=== PATIENT | female | born 1990 | race Caucasian/White ===

== ENCOUNTER 2016-09-13 19:32 | Inpatient (IN) | payer MEDICAID, OTHER ==
[~2016-09-13] VITALS: Ht 175.3 cm; Wt 90.3 kg
[2016-09-13] MEDS ORDERED: LACTATED RINGER'S 1000 ML INJ 1,000 ML IV PRN (20:49)
[2016-09-13] MEDS ORDERED: OXYTOCIN 30 UNITS-500ML PREMIX 500 ML IV ONE (21:00)
[2016-09-13] MEDS ORDERED: DINOPROSTONE 10 MG VAG INSERT VAGINAL ONE (21:00)
[2016-09-13] MEDS ORDERED: MINERAL OIL 10 ML VIAL TOPICAL PRN (21:00)
[2016-09-13] MEDS ORDERED: LIDOCAINE HCL 1% 50 ML VIAL I-DERMAL PRN (21:00)
[2016-09-13] MEDS ORDERED: SODIUM CHLORIDE 0.9% FLUSH 10 ML FLUSH IV FLUSH PRN (21:00)
[2016-09-13] MEDS ORDERED: CITRIC ACID-SODIUM CITRATE LIQ 30 ML UDC PO SCH (21:00)
[2016-09-13] MEDS ORDERED: LIDOCAINE HCL 1% 50 ML VIAL INFIL PRN (21:00)
[2016-09-13] MEDS ORDERED: SODIUM CHLORID 0.9% 500 ML INJ 500 ML IV PRN (21:00)
[2016-09-13] MEDS ORDERED: SODIUM CHLOR 0.9% 1000 ML INJ 1,000 ML IV PRN (21:09)
[2016-09-13 21:18] LABS: BASOPHIL % 0.1 % (0.0-2.0); EOSINOPHIL # 0.1 TH/MM3 (0-0.4); EOSINOPHIL % 0.8 % (0.0-4.0); HEMATOCRIT 36.6 % (35.0-46.0); HEMO FLAGS DIFF FINAL; LYMPH % 14.1 % (9.0-44.0); MEAN CELL VOLUME 83.2 FL (80.0-100.0); MEAN CORPUSCULAR HEMOGLOBIN 28.3 PG (27.0-34.0); MONO % 6.1 % (0.0-8.0); NEUT % 78.9 % (16.0-70.0); PLATELET COUNT 226 TH/MM3 (150-450); RED CELL DISTRIBUTION WIDTH 14.5 % (11.6-17.2)
[2016-09-13 21:20] LABS: BACTERIA, URINE RARE /hpf; BLOOD, URINE NEG (NEG); COMMENT (UR) CULT NOT INDICATED; CULTURE IF INDICATED CULT NOT INDICATED; GLUCOSE,URINE NEG (NEG); KETONE, URINE NEG (NEG); MUCUS URINE FEW /lpf (OCC); NITRITE,URINE NEG (NEG); PH, URINE 6.5 (5.0-8.5); SQUAMOUS EPITHELIAL CELL URINE 3 /hpf (0-5); URINE COLOR YELLOW (YELLW/STRAW)
[2016-09-13] MEDS: LACTATED RINGER'S 1000 ML INJ 1,000 ML IV SCH (21:48)
[2016-09-13] MEDS: SODIUM CHLORIDE 0.9% FLUSH 10 ML FLUSH IV FLUSH SCH (21:48)
[2016-09-13 23:48] VITALS: BP 120/71; PULSE 86
[2016-09-13 23:49] VITALS: RESP 18; TEMP 97.7
[2016-09-14] VITALS (87 sets, daily range): BP systolic 95–139; BP diastolic 45–110; PULSE 77–170; RESP 12–20; TEMP 97.7–98.5
[2016-09-14] MEDS ORDERED: PREN29TA PO (07:44)
--- NOTE | 2016-09-14 08:37 | HHI.HP ---
HPI Chief Complaint iol Date Seen: September 14, 2016 Travel History International Travel<30 Days: No Contact w/Intl Traveler<30Days: No Known Affected Area: No History of Present Illness HPI Pt is a G1 with iup at 40w1d admitted overnight for elective iol. She has good fm, irreg ctx, no lof or vb. PNC uncomplicated. h/o asthma, well controlled in . Wt gain 38 lb. Varicella non-immune. Para: 0 : 1 History Past Medical History Narrative Medical mild intermittent asthma varicella non-immune Obstetric History Obstetric History G1 Past Surgical History Surgical History: No Previous Surgery Family History Family History: Negative Social History Alcohol Use: No Tobacco Use: No Substance Abuse: No Allergies-Medications (Allergen,Severity, Reaction): Coded Allergies: No Known Allergies (Unverified , 09/13/16) Home Meds Reported Medications Vit-Iron Carbonyl ( Plus Iron 29-1 mg)1 Tab Tab1 Tab PO DAILY #30 TAB Ref 0 09/14/16 Review of Systems General / Constitutional: No: Fever, Weight Gain, Chills, Other Eyes: No: Diploplia, Blurred Vision, Visual changes, Pain, Photophobia HENT: No: Headaches, Vertigo, Lightheadedness Cardiovascular: No: Irregular Rhythm, Chest Pain or Discomfort, Palpitations, Tachycardia, Syncope, Varicosities, Edema, Cyanosis Respiratory: No: Cough, Short of Breath, Other Gastrointestinal: No: Nausea, Vomiting, Diarrhea Genitourinary: No: Decreased Urinary Output, Oliguria Musculoskeletal: No: Limited ROM, Weakness, Cramping, Edema, Pain Skin: No Rash, No Itching, No Dryness, No Lumps, No Change in Pigmentation, No Change in Nails, No Alopecia, No Lesions Neurologic: No: Weakness, Dizziness, Syncope, Focal Abnormalities, Coordination Problem, Headache, Slurred Speech, Seizures Psychiatric: No: Depression, Suicidal Ideations, Homicidal Ideation Endocrine: No: Heat Intolerance, Cold Intolerance, Polydipsia, Polyuria, Other Physical Exam Vital Signs Date Time Temp Pulse Resp B/P Pulse Ox O2 Delivery O2 Flow Rate FiO2 09/14/16 07:15 18 09/14/16 07:15 98 108/75 09/14/16 07:15 98.2 09/14/16 04:53 104 116/75 09/14/16 04:52 98.0 18 09/14/16 03:37 98.1 09/14/16 03:34 91 18 125/77 09/13/16 23:49 97.7 18 09/13/16 23:48 86 120/71 Narrative GENERAL: Well-nourished, well-developed patient. SKIN: Warm and dry. HEAD: Normocephalic and atraumatic. EYES: No scleral icterus. No injection or drainage. ENT: No nasal drainage noted. Mucous membranes pink. Airway patent. NECK: Supple, trachea midline. No JVD. CARDIOVASCULAR: Regular rate and rhythm without murmurs, gallops, or rubs. RESPIRATORY: Breath sounds equal bilaterally. No accessory muscle use. ABDOMEN/GI: Abdomen soft, non-tender, bowel sounds present, no rebound, no guarding Gravid to 40 weeks size GENITOURINARY: External Genitalia: intact and normal in appearance BUS glands: [-] Cervix: 1/75/-2, post Presentation: ceph Membranes: [intact Uterine Contractionsirreg FHT's: Category: I EXTREMITIES: No cyanosis or edema. BACK: Nontender without obvious deformity. No CVA tenderness. NEUROLOGICAL: Awake and alert. Motor and sensory grossly within normal limits. Five out of 5 muscle strength in all muscle groups. Normal speech. Data Data Vital Signs Reviewed: Yes Orders Admit To Inpatient (09/13/16 ) Code Status (09/13/16 20:49) Vital Signs (Adult) .Per protocol (09/13/16 20:49) Activity Oob Ad Latoya (09/13/16 20:49) Amnioinfusion (09/13/16 20:49) Urinary Catheter Management .ONCE (09/13/16 20:49) Lactated Ringer's 1000 Ml Inj (Lr 1000 M (09/13/16 21:00) Lactated Ringer's 1000 Ml Inj (Lr 1000 M (09/13/16 20:49) Sodium Chlorid 0.9% 500 Ml Inj (Ns 500 M (09/13/16 21:00) Sodium Chlor 0.9% 1000 Ml Inj (Ns 1000 M (09/13/16 21:09) Lidocaine 1% Inj (50 Ml) (Xylocaine 1% I (09/13/16 21:00) Citric Acid-Sodium Citrate Liq (Bicitra (09/13/16 21:00) Fentanyl Inj (Fentanyl Inj) (09/13/16 21:00) Fentanyl Inj (Fentanyl Inj) (09/13/16 21:00) Complete Blood Count With Diff (09/13/16 20:49) Hold Clot (09/13/16 20:49) Abo/Rh Blood Type (09/13/16 20:49) Urinalysis - C+S If Indicated (09/13/16 20:49) Resp Oxygen Non Rebreathe Mask (09/13/16 ) ^ Epidural / Intrathecal Infus (09/13/16 20:49) Oxytocin 30 Units-500ml Premix (Pitocin (09/13/16 21:00) Lidocaine 1% Inj (50 Ml) (Xylocaine 1% I (09/13/16 21:00) Light Mineral Oil (Muri-Lube Oil) (09/13/16 21:00) Admit To Inpatient (09/13/16 ) Diet Regular Basic (09/14/16 Breakfast) ^ Vaginal Insert (09/13/16 20:49) Heart (09/13/16 20:49) Sodium Chloride 0.9% Flush (Ns Flush) (09/13/16 21:00) Sodium Chloride 0.9% Flush (Ns Flush) (09/13/16 21:00) Dinoprostone Vag Insert (Cervidil Vag In (09/13/16 21:00) Inpatient Certification (09/13/16 ) Specimen To Be Collected PRN (09/13/16 20:49) Labs Laboratory Tests Test 09/13/16 19:55 White Blood Count 14.0 Red Blood Count 4.40 Hemoglobin 12.5 Hematocrit 36.6 Mean Corpuscular Volume 83.2 Mean Corpuscular Hemoglobin 28.3 Mean Corpuscular Hemoglobin 34.0 Concent Red Cell Distribution Width 14.5 Platelet Count 226 Mean Platelet Volume 7.6 Neutrophils (%) (Auto) 78.9 Lymphocytes (%) (Auto) 14.1 Monocytes (%) (Auto) 6.1 Eosinophils (%) (Auto) 0.8 Basophils (%) (Auto) 0.1 Neutrophils # (Auto) 11.0 Lymphocytes # (Auto) 2.0 Monocytes # (Auto) 0.9 Eosinophils # (Auto) 0.1 Basophils # (Auto) 0.0 CBC Comment DIFF FINAL Differential Comment Urine Color YELLOW Urine Turbidity CLEAR Urine pH 6.5 Urine Specific [place] 1.018 Urine Protein NEG Urine Glucose (UA) NEG Urine Ketones NEG Urine Occult Blood NEG Urine Nitrite NEG Urine Bilirubin NEG Urine Urobilinogen LESS THAN 2.0 Urine Leukocyte Esterase NEG Urine RBC LESS THAN 1 Urine WBC 2 Urine Squamous Epithelial 3 Cells Urine Bacteria RARE Urine Mucus FEW Microscopic Urinalysis Comment CULT NOT INDICATED Blood Type O POSITIVE Band and Hold HOLD CLOT IN BB Assessment/Plan Problem List: (1) Labor and delivery indication for care or intervention Discharge Planning 26 yo G1 with iup at 40w1d here for iol s/p cervidil, will start pitocin, AROM when possible gbs + start pcn varicella NI- vaccine pp Fetus - cephalic, Cat I Michelle Valenzuela MD September 14, 2016 08:36
[2016-09-14] MEDS ORDERED: PENICILLIN G POTASSIUM INJ 5,000,000 UNITS in SODIUM CHLORIDE 0.9% INJ 100 ML IV ONE (08:45)
[2016-09-14] MEDS ORDERED: OXYTOCIN 30 UNITS-500ML PREMIX 500 ML IV SCH (08:45)
[2016-09-14] MEDS: LACTATED RINGER'S 1000 ML INJ 1,000 ML IV SCH (08:50)
[2016-09-14] MEDS: SODIUM CHLORIDE 0.9% FLUSH 10 ML FLUSH IV FLUSH SCH (09:00)
[2016-09-14] MEDS ORDERED: PENICILLIN G POTASSIUM INJ 2,500,000 UNITS in SODIUM CHLORIDE 0.9% INJ 100 ML IV SCH (13:00)
--- NOTE | 2016-09-14 14:14 | PD.LABORPN ---
Subjective Subjective Pt feeling strong contractions, desires epidural. Associated n/v Objective Vital Signs Vital Signs Date Time Temp Pulse Resp B/P Pulse Ox O2 Delivery O2 Flow Rate FiO2 09/14/16 13:40 95 09/14/16 13:35 104 09/14/16 13:31 94 139/110 09/14/16 13:30 91 09/14/16 13:15 20 09/14/16 13:00 91 106/69 09/14/16 12:30 95 115/80 09/14/16 12:15 19 09/14/16 12:07 98 107/80 09/14/16 12:02 170 09/14/16 11:30 85 116/87 09/14/16 11:15 97.8 09/14/16 11:02 18 09/14/16 11:00 87 119/78 09/14/16 10:30 83 115/75 09/14/16 10:15 18 09/14/16 10:00 87 117/82 09/14/16 09:41 91 116/77 09/14/16 09:15 18 09/14/16 08:45 94 114/64 09/14/16 08:15 18 09/14/16 07:15 18 09/14/16 07:15 98 108/75 09/14/16 07:15 98.2 Objective Pelvic Exam: Cervix:4/80/-2 mid, soft Presentation ceph Membranes: Arom, blood tinged Uterine Contractions: q 1-3 min FHT's: Category: I Baseline: 130 Reactive: y Variability: mod Decels: [-] Assessment/Plan Problem List: (1) Labor and delivery indication for care or intervention Assessment and Plan 26 yo G1 with iup at 40w1 d 1) IOL- arom this check, iupc placed. Pitocin decreased until she can have epidural due to pt discomfort 2) GBS + on pcn prophy 3) varicella NI - pp vaccine 4) fetus - female, Norma, Cat I tracing Michelle Valenzuela MD September 14, 2016 14:14
[2016-09-14] MEDS ORDERED: fentaNYL 2MCG-BUPIV 0.125% INJ 100 ML ONE (14:16)
[2016-09-14] MEDS ORDERED: ONDANSETRON ODT 4 MG TAB PO PRN ×2 (14:30→18:00)
[2016-09-14] MEDS ORDERED: ePHEDrine/NS 25 MG/5 ML SYR ONE (15:29)
[2016-09-14] MEDS ORDERED: DIPHTH/TETANUS/ACEL PERTUSSIS (BOOSTER) 0.5 ML VIAL/PFS IM ONE (16:00)
[2016-09-14] MEDS ORDERED: MEASLES, MUMPS, RUBELLA VACCINE 0.5 ML VIAL SQ ONE (16:00)
[2016-09-14] MEDS ORDERED: ePHEDrine/NS 25 MG/5 ML SYR IV PRN (16:30)
[2016-09-14] MEDS ORDERED: DO NOT ADMINISTER ANTICOAGULANTS PRN (16:30)
[2016-09-14] MEDS ORDERED: NO SYSTEM NARCOTICS PRN (16:30)
[2016-09-14] MEDS ORDERED: fentaNYL 2MCG-BUPIV 0.125% 100 ML EPIDURAL SCH (16:30)
--- NOTE | 2016-09-14 17:51 | PD.OB.DELI ---
Delivery Date: September 14, 2016 Anesthesia: Epidural Episiotomy: None Vaginal Delivery: Normal Presentation: Occiput anterior Nuchal Cord: Other (loose body cord) Delayed cord clamping (45 sec): Yes : Female One Minute : 8 Five Minute : 9 Weight: 3645g Placenta: Spontaneous delivery Laceration: 2 deg Repair: Chromic running, Vicryl interrupted Additional Information EBL 400 ML Michelle Valenzuela MD September 14, 2016 17:51
--- NOTE | 2016-09-14 17:54 | HHI.DCPOC ---
Discharge Care Plan Diagnosis: (1) (spontaneous vaginal delivery) Your Health Problems Are: Vaginal delivery Report Symptoms to Your Doctor -Temperate above 100.5 degrees -Redness, of incision or excessive or foul smelling drainage -Unusual pain or calf pain -Increased vaginal bleeding -Painful or difficulty urinating -Feelings of extreme sadness or anxiety after 2 weeks Goals to Promote Your Health * To prevent worsening of your condition and complications * To maintain your health at the optimal level Directions to Meet Your Goals Take your medications as prescribed Follow your dietary instruction Follow activity as directed Ensure plenty of rest for recovery Drink fluids for hydration Keep your appointments as scheduled Take your immunizations and boosters as scheduled If your symptoms worsen call your PCP, if no PCP go to Urgent Care Center or Emergency Room Smoking is Dangerous to Your Health. Avoid second hand smoke Call the 24-hour crisis hotline for domestic abuse at Michelle Valenzuela MD September 14, 2016 17:53
[2016-09-14] MEDS ORDERED: ZOLPIDEM TARTRATE 5 MG TAB PO PRN (18:00)
[2016-09-14] MEDS ORDERED: SODIUM CHLORIDE 0.9% FLUSH 10 ML FLUSH IV FLUSH PRN (18:00)
[2016-09-14] MEDS ORDERED: BENZOCAINE 20% TOPICAL SPRAY 60 ML CAN TOPICAL PRN (18:00)
[2016-09-14] MEDS ORDERED: oxyCODONE/ACETAMINOPHEN 5 MG/325 MG TAB PO PRN (18:00)
[2016-09-14] MEDS ORDERED: ALUMINUM/MAGNESIUM/SIMETH 30 ML CUP PO PRN (18:00)
[2016-09-14] MEDS ORDERED: ACETAMINOPHEN 325 MG TAB PO PRN (18:00)
[2016-09-14] MEDS ORDERED: WITCH HAZEL 50%/GLYCERIN 12.5% 40 PAD JAR TOPICAL PRN (18:00)
[2016-09-14] MEDS ORDERED: DOCUSATE SODIUM 50 MG/SENNA 8.6 MG TAB PO PRN (18:00)
[2016-09-14] MEDS ORDERED: SODIUM CHLORIDE 0.9% FLUSH 10 ML FLUSH IV FLUSH SCH (21:00)
[2016-09-15] MEDS: IBUPROFEN 600 MG TAB PO PRN ×3 (02:17→18:10)
[2016-09-15 08:00] VITALS: BP 113/73; PULSE 87; RESP 18; TEMP 98.4
--- NOTE | 2016-09-15 08:48 | HHI.OB ---
Subjective Post Day: 1 Remarks Doing well with pericare and motrin for pain mod bleeding Breast feeding Objective Vitals/I&O Vital Signs Date Time Temp Pulse Resp B/P Pulse Ox O2 Delivery O2 Flow Rate FiO2 09/14/16 20:20 98.5 97 12 120/80 09/14/16 19:00 18 09/14/16 19:00 97.7 09/14/16 18:45 18 09/14/16 18:45 98 107/71 09/14/16 18:30 98 118/74 09/14/16 18:30 18 09/14/16 18:26 93 119/95 09/14/16 18:15 98 117/75 09/14/16 18:15 18 09/14/16 18:00 18 09/14/16 17:46 111 130/97 09/14/16 17:45 97.9 09/14/16 17:45 18 09/14/16 17:30 98 105/79 09/14/16 17:20 109 09/14/16 17:15 84 129/80 09/14/16 17:15 95 09/14/16 17:10 109 09/14/16 17:05 93 09/14/16 17:00 113 113/79 09/14/16 17:00 116 09/14/16 16:45 104 09/14/16 16:40 101 09/14/16 16:35 103 09/14/16 16:30 100 111/89 09/14/16 16:25 83 09/14/16 16:20 85 09/14/16 16:15 90 113/62 09/14/16 16:15 87 09/14/16 16:10 84 09/14/16 16:05 95 09/14/16 16:00 83 09/14/16 16:00 87 96/80 09/14/16 15:55 88 09/14/16 15:51 88 108/61 09/14/16 15:50 86 09/14/16 15:46 87 107/60 09/14/16 15:45 85 09/14/16 15:44 83 109/67 09/14/16 15:40 89 09/14/16 15:38 89 120/68 09/14/16 15:36 99 125/79 09/14/16 15:35 100 09/14/16 15:31 98 95/45 17 15:30 77 09/14/16 15:25 83 09/14/16 15:20 85 09/14/16 15:16 89 99/66 09/14/16 15:15 87 09/14/16 15:10 89 105/68 09/14/16 15:10 78 09/14/16 15:05 84 99/70 09/14/16 15:05 90 09/14/16 15:00 81 105/66 09/14/16 15:00 89 09/14/16 14:55 91 111/71 09/14/16 14:55 86 09/14/16 14:50 96 09/14/16 14:50 97 109/74 09/14/16 14:45 88 09/14/16 14:45 90 116/77 09/14/16 14:40 95 125/82 09/14/16 14:40 91 09/14/16 14:37 97 123/78 09/14/16 14:35 97 09/14/16 14:30 102 09/14/16 14:29 103 128/77 09/14/16 14:28 102 113/85 09/14/16 14:20 105 09/14/16 14:15 109 09/14/16 14:10 98 09/14/16 14:05 94 09/14/16 14:00 117/84 09/14/16 13:58 94 106/72 09/14/16 13:55 92 09/14/16 13:50 94 09/14/16 13:40 95 09/14/16 13:35 104 09/14/16 13:31 94 139/110 09/14/16 13:30 91 09/14/16 13:16 18 09/14/16 13:15 20 09/14/16 13:00 91 106/69 09/14/16 12:30 95 115/80 09/14/16 12:15 19 09/14/16 12:07 98 107/80 09/14/16 12:02 170 09/14/16 11:30 85 116/87 09/14/16 11:15 97.8 09/14/16 11:02 18 09/14/16 11:00 87 119/78 09/14/16 10:30 83 115/75 5/19/17 10:15 18 09/14/16 10:00 87 117/82 09/14/16 09:41 91 116/77 09/14/16 09:15 18 09/14/16 08:45 94 114/64 Objective Remarks GENERAL: Well-nourished, well-developed patient. CARDIOVASCULAR: Regular rate and rhythm without murmurs, gallops, or rubs. RESPIRATORY: Breath sounds equal bilaterally. No accessory muscle use. ABDOMEN/GI: Abdomen soft, non-tender. Fundus: Firm, non-tender at umbilicus-4cm. GENITOURINARY: Light to moderate bleeding. EXTREMITIES: No cyanosis or edema, non-tender, without signs of DVT. Medications and IVs Current Medications Medications (Trade) Dose Ordered Sig/Elieser Route Start Time Stop Time Status Last Admin (NS Flush) 2 ml BID IV FLUSH 09/14/16 21:00 (NS Flush) 2 ml UNSCH PRN IV FLUSH 09/14/16 18:00 (Tylenol) 650 mg Q4H PRN PO 09/14/16 18:00 (Motrin) 600 mg Q6H PRN PO 09/14/16 18:00 09/15/16 02:17 (Percocet 5-325 Mg) 1 tab Q4H PRN PO 09/14/16 18:00 (Americaine 20% Top Spr) 1 spray Q4H PRN TOPICAL 09/14/16 18:00 09/15/16 02:15 (Tucks Pads) 1 applic QID PRN TOPICAL 09/14/16 18:00 09/15/16 02:15 (Natalie-Colace) 2 tab Q12H PRN PO 09/14/16 18:00 (Ambien) 5 mg HS PRN PO 09/14/16 18:00 (Mag-Al Plus Susp Liq) 15 ml Q8H PRN PO 09/14/16 18:00 (Zofran Odt) 4 mg Q6H PRN PO 09/14/16 18:00 Assessment/Plan Problem List: (1) Labor and delivery indication for care or intervention Discharge Planning 26 yo s/p nvd at 40w1d PPD 1- doing well, desires to be d/c today. will d/c home when ready 2 mild range BP elevations but no other symptoms of PRE-e, pre-e precautions reviewed varicella NI- vaccine pp Michelle Valenzuela MD September 15, 2016 08:48
[2016-09-15] MEDS ORDERED: IBUP-232 PO (08:49)
== END 2016-09-15 18:21 | disposition home or self-care (01) | DRG 775 ==
LOC: H2EB 19:32 → H1EA 09-14 19:27
PROVIDERS: ADMIT Obstetrics & Gynecology; ATTEND Obstetrics & Gynecology
PROC: 3E0P7GC Introduction of Other Therapeutic Substance into Female Reproductive, Via Natural or Artificial Opening (ICD-10-PCS; 2016-09-13)
PROC: 10E0XZZ Delivery of Products of Conception, External Approach (ICD-10-PCS; principal; 2016-09-14)
PROC: 0KQM0ZZ Repair Perineum Muscle, Open Approach (ICD-10-PCS; 2016-09-14)
PROC: 10907ZC Drainage of Amniotic Fluid, Therapeutic from Products of Conception, Via Natural or Artificial Opening (ICD-10-PCS; 2016-09-14)
PROC: 10H07YZ Insertion of Other Device into Products of Conception, Via Natural or Artificial Opening (ICD-10-PCS; 2016-09-14)
PROC: 3E0S3CZ (ICD-10-PCS; 2016-09-14)
PROC: 00HU33Z Insertion of Infusion Device into Spinal Canal, Percutaneous Approach (ICD-10-PCS; 2016-09-14)
DX: O75.89 Other specified complications of labor and delivery (principal); O99.820 Streptococcus B carrier state complicating pregnancy; O99.52 Diseases of the respiratory system complicating childbirth; J45.20 Mild intermittent asthma, uncomplicated; O70.1 Second degree perineal laceration during delivery; O69.82X0 Labor and delivery complicated by other cord entanglement, without compression, not applicable or unspecified; Z3A.40 40 weeks gestation of pregnancy; Z37.0 Single live birth
CPT/HCPCS: 59025; 81001; 85025; 86900; 86901; 90715; J2540; J2590; J3010; J7120